=== PATIENT | female | born 1985 | race Caucasian/White ===

== ENCOUNTER 2017-05-28 22:05 | Emergency (ER) | payer BC ==
[2017-05-28] MEDS ORDERED: TORAdol 30 mg Injection IM ONE (22:27)
[2017-05-28] MEDS ORDERED: Norflex 60 MG/2 ML IM ONE (22:27)
--- NOTE | 2017-05-28 22:34 | ERPHSYRPT ---
- History of Present Illness Time Seen by Provider: 05/28/17 22:17 Source: patient, family () Patient Subjective Stated Complaint: Pt sts pain in lower back after sitting on floor wrapping presents Saturday evening. Sts pain has been getting worse since it started. 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 Triage Nursing Assessment: Pt alert, oriented, answers all questions appropriately. Skin pink, warm, dry. Resps non-labored. Pt able to stand with minimal assist and transfer self from wheelchair to bed. Pt able to move all extremities without difficulty. Pt grimaces with movement. Physician History: CC: back pain Hx: 31 y/o patient of MERYL Carver. She has hx of prior back pain but not chronic. She works as [employer]. She had LMP beginning of May and states not . She has low back pain for a few days, worse across hips. No N/T/W. No urinary symptoms. Pain is worse with movement. She was sitting wrapping presents and the pain intensified. She has used norco at home for menses. She takes regular motrin. No fever, chills, of hx of cancer. She occasionally has stress incontinence but no new or unusual symptoms. Timing/Duration: day(s) (2-3) Quality: sharp, aching Back Pain Location: lumbar spine Severity of Pain-Max: severe Severity of Pain-Current: severe Allergies/Adverse Reactions: No Known Drug Allergies Allergy (Unverified 05/28/17 22:27) Home Medications: Hydrocodone/Acetaminophen [Hydrocodone-Acetamin 5-325 mg] 1 tab PO PRN 05/28/17 [History] Lisinopril 5 mg [Zestril 5 MG] 5 mg PO DAILY 05/28/17 [History] Paroxetine HCl [Paroxetine HCl] 40 mg PO DAILY 05/28/17 [History] Immunizations Up to Date: Yes - Review of Systems Constitutional: No Fever, No Chills Eyes: No Symptoms Ears, Nose, & Throat: No Symptoms Respiratory: No Cough, No Dyspnea Cardiac: No Chest Pain Abdominal/Gastrointestinal: No Abdominal Pain Genitourinary Symptoms: No Dysuria, No Urinary Retention, No Musculoskeletal: Back Pain Skin: No Rash Neurological: No Headache All Other Systems: Reviewed and Negative - Past Medical History Pertinent Past Medical History: Yes Cardiac History: Hypertension - Social History Smoking Status: Current every day smoker How long have you smoked: 18 Exposure to second hand smoke: No Patient Lives Alone: No (works as [employer], ) - Female History Hx Last Menstrual Period: last week of Nov Hx Now: No - Nursing Vital Signs Nursing Vital Signs: Initial Vital Signs Temperature 99.3 F 05/28/17 22:09 Pulse Rate 98 H 05/28/17 22:09 Respiratory Rate 16 05/28/17 22:09 Blood Pressure 168/99 05/28/17 22:09 O2 Sat by Pulse Oximetry 99 05/28/17 22:09 Pain Scale Pain Intensity 3 - Physical Exam General Appearance: alert Eye Exam: PERRL/EOMI Ears, Nose, Throat Exam: normal ENT inspection, moist mucous membranes Neck Exam: normal inspection, non-tender, supple Respiratory Exam: normal breath sounds Cardiovascular Exam: regular rate/rhythm Gastrointestinal Exam: soft, No tenderness, No distention Back Exam: normal inspection, vertebral tenderness (low worse at SI areas) Extremity Exam: normal inspection, normal range of motion Neurologic Exam: alert, oriented x 3, cooperative, 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, sensation nml, other (2+ MSR's bialteral patella), No motor deficits Skin Exam: warm, dry, No rash SpO2 Interpretation: normal SpO2: 99 Oxygen Delivery: Room Air - Course Nursing assessment & vital signs reviewed: Yes Ordered Tests: Medication Summary Generic Name Dose Route Start Last Admin Trade Name Aravindq PRN Reason Stop Dose Admin Ketorolac Tromethamine 60 mg 05/28/17 22:27 Toradol 30 Mg Injection IM 05/28/17 22:28 STAT ONE Orphenadrine Citrate 60 mg 05/28/17 22:27 Norflex 60 Mg/2 Ml IM 05/28/17 22:28 STAT ONE - Progress Progress Note: 05/28/17 22:32 She has likely mechanical back pain. She will be treated with norflex, motrin. Advised warm or cold therapy. 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 Will need work slip tomorrow. Will release with back pain instr. Counseled pt/family regarding: diagnosis, need for follow-up - Departure Time of Disposition: 22:32 Departure Disposition: Home Clinical Impression: Lumbago Condition: Stable Critical Care Time: No Referrals: LOWELL CARVER [employer] [facility] [Primary Care Provider] - Instructions: Low Back Pain Additional Instructions: BACK INJURY 1. May apply moist heat frequently for relief of pain. Take care not to burn the skin. Do not use heat for more than 30 minutes at a time. 2. Try to sleep on a firm bed, flat on your back. 3. If no improvement is noticed in 2-3 days, follow up with your family physician. 4. If you notice any numbness, tingling, weakness, or problems with your bowel or bladder, you should call your family physician or return to the emergency department. Rx norflex for muscle relaxer- no driving or operating machinery. Take ibuprofen 600mg every 6 hours. Warm and cold packs. See MERYL Carver this week to consider physical therapy and further evaluation/ care. Return for problems or concerns. Prescriptions: Orphenadrine Citrate 100 mg [Norflex 100 MG Tablet] 1 tab PO BID #10 tab
[2017-05-28] MEDS ORDERED: TORAdol 30 mg Injection ONE (22:41)
[2017-05-28] MEDS ORDERED: Norflex 60 MG/2 ML ONE (22:41)
[2017-05-28 23:08] VITALS: BP 150/58; PULSE 88; O2SAT 97
== END 2017-05-28 23:10 | disposition home or self-care (01) ==
LOC: ED 22:05
DX: M54.5 Low back pain (principal); I10 Essential (primary) hypertension
CPT/HCPCS: 99282; J1885; J2360